=== PATIENT | male | born 1990 ===

== ENCOUNTER → 2022-08-17 13:01 | Outpatient (CLI) | payer OTHER, SELFPAY ==
--- NOTE | ~2022-08-17 | MR_ITS ---
EXAMINATION: MR ankle LT wo con DATE: 08/17/2022 13:43 INDICATION: Left ankle pain TECHNIQUE: Magnetic resonance imaging (MRI) of the left ankle was performed without intravenous contr ast. Sequences included sagittal, coronal, and axial proton-density weighted fast spin echo without a nd with fat saturation. COMPARISON: None. FINDINGS: Medial ankle ligaments: Deep and superficial deltoid ligaments as well as the spring ligament are normal. Lateral ankle ligaments: The anterior and posterior inferior tibiofibular ligaments are normal. The anterior talofibular, calc aneofibular and posterior talofibular ligaments are normal. Tendons: Achilles tendon is normal. The peroneus longus and brevis tendons are normal. The tibialis anterior a nd extensor hallucis longus and extensor digitorum longus tendons are normal. The tibialis posterior, flexor digitorum longus and flexor hallucis longus tendons are normal. Plantar fascia: Plantar aponeurosis is normal. Bones/other: Bone alignment is normal. Normal marrow signal throughout with no fracture or pathologic marrow repla cing process. Mild osteoarthritis with nonuniform partial-thickness cartilage loss at the calcaneocub oid articulation and at the second and fourth tarsal metatarsal joints. No erosions to suggest inflam matory arthritis. Lisfranc ligament complex is normal. Fluid: Physiologic amount fluid in the joint space. No tenosynovitis, bursitis or other abnormal fluid colle ctions. IMPRESSION: 1. 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 Reviewed, dictated and finalized at location A.
== END ==
PROVIDERS: PCP Podiatrist Foot & Ankle Surgery; Visit Provider Podiatrist Foot & Ankle Surgery
DX: M76.62 Achilles tendinitis, left leg (principal); M19.072 Primary osteoarthritis, left ankle and foot
CPT/HCPCS: 73721